=== PATIENT | male | born 1995 | race African-American/Black ===

== ENCOUNTER 2017-12-12 09:57 | Emergency (ER) | payer SELFPAY ==
[2017-12-12] MEDS ORDERED: Azithromycin 250 MG TAB ONE (10:41)
[2017-12-12] MEDS ORDERED: cefTRIAXone\\ROCEPHIN 250 MG VIAL ONE (10:41)
[2017-12-12] MEDS ORDERED: Lidocaine 1% 20 ML MDV ONE (10:49)
[2017-12-12 11:36] LABS: Bilirubin Negative (Negative); Blood, Urine Negative (Negative); Clarity Clear (Clear); Glucose, Urine (Dipstick) Negative (Negative); Leukocyte Negative (Negative); Nitrite Negative (Negative); Protein, Urine (Dipstick) Negative (Neg-Trace); Urobilinogen 0.2 mg/dL (0.2-1.0); pH, Urine 7.5 (5.0-9.0)
[2017-12-13 01:46] LABS: Chlamydia by PCR DETECTED (NotDetected); GC by PCR Not Detected (NotDetected)
== END 2017-12-12 11:52 | disposition home or self-care (01) ==
LOC: NAV ERS 09:57
DX: Z20.2 Contact with and (suspected) exposure to infections with a predominantly sexual mode of transmission (principal); I10 Essential (primary) hypertension
CPT/HCPCS: 81003; 87491; 87591; 96372; J0696; J2001

== ENCOUNTER 2020-08-18 16:20 | Emergency (ER) | payer SELFPAY | END 2020-08-18 17:06 | disposition home or self-care (01) | LOC: NAV ERS 16:20 | DX: J06.9 Acute upper respiratory infection, unspecified (principal) | CPT/HCPCS: 99281 ==

== ENCOUNTER 2023-11-06 21:56 | Emergency (ER) | payer BC ==
[2023-11-06] MEDS ORDERED: Sulfameth/Trimethoprim DS 800-160mg TAB ONE (23:52)
== END 2023-11-06 23:58 | disposition home or self-care (01) ==
LOC: NAV ERS 21:56
DX: L03.031 Cellulitis of right toe (principal)
CPT/HCPCS: 99283